=== PATIENT | female | born 1970 | race Caucasian/White ===

== ENCOUNTER 2025-07-27 12:50 | Emergency (ER) | payer OTHER, SELFPAY ==
[2025-07-27 12:54] VITALS: BP 192/114; PULSE 78; RESP 18; TEMP 36.7; O2SAT 97
--- NOTE | 2025-07-27 13:33 | CRLHL7_ITS ---
For Patients: As a result of the Cures Act, medical imaging exams and procedure reports are released immediately into your electronic medical record. You may view this report before your referring provider. If you have questions, please contact your health care provider. Indication: Fall Technique: Two views left tibia fibula Comparison: None Findings/Impression: Bones: Alignment is normal. No fractures or bone lesions. Joint spaces: Unremarkable. Soft tissues: Anterior soft tissue swelling. Dictated by Dipesh Richard MD @ 07/27/2025 2:32:49 PM (Electronically Signed)
--- NOTE | 2025-07-27 13:33 | CRLHL7_ITS ---
For Patients: As a result of the Cures Act, medical imaging exams and procedure reports are released immediately into your electronic medical record. You may view this report before your referring provider. If you have questions, please contact your health care provider. Indication: Fall, swelling and pain. Technique: Three views right knee Comparison: None Findings/Impression: Bones: Alignment is normal. No fractures or bone lesions. Joint spaces: Unremarkable. Soft tissues: Unremarkable. Dictated by Dipesh Richard MD @ 07/27/2025 2:33:37 PM (Electronically Signed)
--- NOTE | 2025-07-27 13:33 | CRLHL7_ITS ---
For Patients: As a result of the Century Cures Act, medical imaging exams and procedure reports are released immediately into your electronic medical record. You may view this report before your referring provider. If you have questions, please contact your health care provider. INDICATION: Leg pain and swelling. TECHNIQUE: Ultrasound venous duplex lower left extremity. Compression venous exam was performed using thomas-scale, color Doppler, and spectral Doppler analysis. COMPARISON: None. FINDINGS: Deep veins: Sonographic imaging demonstrates the left common femoral, deep femoral, superficial femoral, popliteal, posterior tibial and the contralateral right common femoral veins to be fully compressible with normal color Doppler blood flow. Superficial veins: Greater saphenous vein is fully compressible. No popliteal cyst. IMPRESSION: Normal left lower extremity venous ultrasound, no sign of deep venous thrombosis. Dictated by Michael Arauz MD @ 07/27/2025 3:01:11 PM (Electronically Signed)
--- NOTE | 2025-07-27 13:33 | CRLHL7_ITS ---
For Patients: As a result of the Century Cures Act, medical imaging exams and procedure reports are released immediately into your electronic medical record. You may view this report before your referring provider. If you have questions, please contact your health care provider. Indication: Fall Technique: Three views right ankle Comparison: Right ankle 07/14/2021 Findings/Impression: Bones: No evidence of acute fracture. Old anterior talus avulsion fracture redemonstrated. Joint spaces: Unremarkable. Soft tissues: Unremarkable. Dictated by Dipesh Richard MD @ 07/27/2025 2:31:22 PM (Electronically Signed)
--- NOTE | 2025-07-27 13:36 | ED.GENADULT ---
[facility] - General Adult General Date Seen: 07/27/25 Chief complaint: Lower Extremity Swelling Stated complaint: Fall yesterday, L leg injury Time Seen by Provider: 07/27/25 13:10 Source: patient Mode of arrival: ambulatory Limitations: no limitations History of Present Illness HPI narrative: Patient is a 54-year-old female presenting to emergency department for left knee pain. She states at work yesterday she tripped and fell on her left side. She tripped over some paint cans. Has been having increased pain since then and has been having difficulty walking. Started noticing bruising on her left lateral knee that has since been getting worse and has had normal be swollen left knee and left lower extremity. She has pain throughout the leg but worse around the knee. She has been able to walk but is unable to bend her knee at all due to pain. It is stuck in extension. She also has some mild right ankle pain. Denies any other injuries. States she did not hit her head. Denies any numbness. Initially has some left lateral rib pain that has since resolved. Related Data Home Medications ?Medication ?Instructions ?Recorded ?Confirmed lamotrigine 100 mg tablet 200 mg PO BID 07/27/25 07/27/25 Allergies Allergy/AdvReac Type Severity Reaction Status Date / Time Iodinated Contrast Media Allergy Severe Anaphylaxis Verified 07/27/25 13:03 Penicillins Allergy Severe Verified 07/27/25 13:03 Review of Systems Narrative: Pertinent systems reviewed and were negative unless stated in HPI PFSH PFS Social History Smoking Status: Never smoker How often do you have a drink containing alcohol: never AUDIT-C Alcohol total score: 0 Non-prescribed substance use: denies use Exam Narrative: Exam Narrative: Const: Well-nourished, Well-developed, in mild distress Eyes: PERRL, no conjunctival injection, and symmetrical lids HENT: Atraumatic external nose and ears. Moist mucous membranes. MSK: Obvious swelling noted to the left knee and left lower leg. Bruising noted to the lateral aspect of the left knee moving down the leg. No tenderness noted to left thigh or hip. No tenderness noted to rest of her extremities other than the anterior aspect of her right ankle. Unable to bend the left knee secondary to pain. Skin: Warm, Dry. No rashes or lesions. Neuro: Normal Muscle tone, No focal neurological deficits. Psych: Awake, Alert, & Oriented x3. Appropriate mood and affect. Const: Vital Signs, click to edit/add: Vital Signs - 24 hr 07/27/25 12:54 Temperature 98.1 F Pulse Rate [Right Pulse Oximeter] 78 Respiratory Rate 18 Blood Pressure [Ri ght Upper Arm] 192/114 H Pulse Oximetry 97 Oxygen Delivery Me thod Room Air Course Vital Signs Vital signs: Initial Vital Signs Temperature 98.1 F 07/27/25 12:54 Temperature Source Temporal Artery Scan 07/27/25 12:54 Pulse Rate 78 07/27/25 12:54 Pulse Rhythm Regular 07/27/25 12:54 Pulse Strength 3+ Normal 07/27/25 12:54 Respiratory Rate 18 07/27/25 12:54 Blood Pressure 192/114 H 07/27/25 12:54 Blood Pressure Mean 140 H 07/27/25 12:54 Blood Pressure Position Sitting 07/27/25 12:54 Pulse Oximetry 97 07/27/25 12:54 Oxygen Delivery Method Room Air 07/27/25 12:54 Vital Signs Temperature 98.1 F 07/27/25 12:54 Pulse Rate 78 07/27/25 12:54 Respiratory Rate 18 07/27/25 12:54 Blood Pressure 192/114 H 07/27/25 12:54 Pulse Oximetry 97 07/27/25 12:54 Oxygen Delivery Method Room Air 07/27/25 12:54 Temperature 98.1 F 07/27/25 12:54 Pulse Rate 78 07/27/25 12:54 Respiratory Rate 18 07/27/25 12:54 Blood Pressure 192/114 H 07/27/25 12:54 Pulse Oximetry 97 07/27/25 12:54 Oxygen Delivery Method Room Air 07/27/25 12:54 Medical Decision Making MDM Narrative Medical decision making narrative: Patient is a 54-year-old female presenting to the emergency department after a fall. She has a notably swollen left knee and lower extremity with quite a bit of bruising noted. Tenderness throughout the knee he noted along with tenderness throat the left lower leg. No tenderness noted to the thigh or hip. She also some mild pain to the right ankle. She is no longer having pain to the left ribs so will hold off on imaging nose. Will x-ray the left knee, left tibia/fibula, right ankle. With all the swelling and the fact that she has not moved the leg much over the past 20 hours will do an ultrasound to make sure she is not developing any blood clots. Images interpreted by myself and the radiologist showed no acute concerning abnormalities. No signs of fractures. No signs of blood clots. She is safe for discharge. I informed her she should follow-up with orthopedics. She is agreeable to this plan. She states she has crutches at home. Imaging Data Venous US: Attestation: I have reviewed the pertinent imaging results. Radiologist's impression: Normal left lower extremity venous ultrasound, no sign of deep venous thrombosis. Dictated by Michael Arauz MD @ 07/27/2025 3:01:11 PM Left knee x-ray: Attestation: I have reviewed the pertinent imaging results. Radiologist's impression: Bones: Alignment is normal. No fractures or bone lesions. Joint spaces: Unremarkable. Soft tissues: Unremarkable. Dictated by Dipesh Richard MD @ 07/27/2025 2:33:37 PM Left tibial/fibular x-ray: Attestation: I have reviewed the pertinent imaging results. Radiologist's impression: Bones: Alignment is normal. No fractures or bone lesions. Joint spaces: Unremarkable. Soft tissues: Anterior soft tissue swelling. Dictated by Dipesh Richard MD @ 07/27/2025 2:32:49 PM Right ankle x-ray: Attestation: I have reviewed the pertinent imaging results. Radiologist's impression: Bones: No evidence of acute fracture. Old anterior talus avulsion fracture redemonstrated. Joint spaces: Unremarkable. Soft tissues: Unremarkable. Dictated by Dipesh Richard MD @ 07/27/2025 2:31:22 PM Discharge Plan Discharge Clinical Impression: Acute pain of left knee Patient Disposition: Home, Self-Care Condition: Stable Instructions: Knee Pain (ED) Additional Instructions: There is no signs of fractures at this time but does not mean there is no underlying soft tissue injuries. Follow-up with [facility]. Call them at . I am unsure how long this injury will take to heal. Prescriptions: No Action lamotrigine 100 mg tablet 200 mg PO BID Follow Up/Referrals: Provider,Not a Local [Primary Care Provider, Family Practice] Stand Alone Forms: Work/School Release, MyHealth Info Instructions
--- OUTSIDE RECORDS SUMMARY | 2025-07-27 15:17 | XMS_ITS | Clinical Summary ---
Author Organization [facility] Address [address] [place] [id number] Care Team Providers Care Growth Hacker Name Role Phone Maty Cuevas NP Unavailable Lacho Arauz MD Unavailable [phone] Afshan Fischer Primary Care Provide r Allergies Active Allergy Reactions Criticality Noted Date Comments Aspirin 08/12/2006 Lisinopril Cough 11/15/2017 Unlisted Allergen (Include D etail In Comments) 08/12/2006 CT SCAN DYE Penicillins Rash 08/12/2006 Medications FOLIC ACID 1 MG TAB take 1 tablet (1 mg) by oral route once daily 0 9 Active levonorgestrel intrauterine device (MIRENA) 20 mcg/24 hr IUD Inserted 09/22/09 0 01 0 Active albuterol HFA (PROAIR HFA) 90 mcg/actuation inhalerIndicatio ns:Wheezing Inhale 2 Puffs by mouth every 4 hours if needed. 1 Inhaler 1 7 Active cyclobenzaprine (FLEXERIL) 10 mg tabletIndication s:Strain of lumbar region, initial encounter Take 1 tablet by mouth 2 times daily if needed for Muscle Spasm. Work comp 40 tablet 1 7 Active Gwkyg-2-WTY-EPA- Fish Oil 1,000 mg (120 mg-180 mg) cap Take 1 capsule by mouth once daily. 0 8 Active medication order composer Vitamin B super complex, calcium, glucosamine chondroitin, Women's multivitamin 0 8 Active carBAMazepine (TEGRETOL) 200 mg tabletIndication s:Seizure disorder (HC) Take 1 tablet by mouth 3 times daily. 270 tablet 8 Active pantoprazole (PROTONIX) 40 mg delayed-release tabletIndication s:Chronic GERD Take 1 tablet by mouth once daily. 90 tablet 3 8 Active chlorthalidone (HYGROTON) 25 mg tabletIndication s:Essential hypertension Take 1 tablet by mouth once daily. 90 tablet 3 8 Active durable medical equipment (DME)Indications :DDD (degenerative disc disease), lumbar Foam roller 1 Each 9 Active durable medical equipment (DME)Indications :DDD (degenerative disc disease), lumbar Exercise Ball 1 Each 9 Active amLODIPine (NORVASC) 5 mg tabletIndication s:HTN (hypertension) TAKE 1 TABLET BY MOUTH ONCE DAILY. 90 tablet 2 9 Active lamoTRIgine (LAMICTAL) 100 mg tablet Take 100 mg by mouth 2 times daily. 0 Active Hospital, Clinic, or Other Facility Administered Medication Ordered Dose Route Frequency Start Date End Date Status levonorgestrel intrauterine device 1 Device (MIRENA)Indications:Encounter for removal and reinsertion of intrauterine contraceptive device 1 Device IU Q 5 YEARS 08/19/2015 Active Active Problems Problem Noted Date Diagnosed Date Essential hypertension 08/22/2018 DDD (degenerative disc disease), lumbar 08/14/20 18 Lower back injury 08/14/2018 Chronic GERD 08/04/2018 Nonintractable epilepsy without status epileptic us 08/04/2018 Lower back injury 12/09/2017 ASCUS with positive high risk HPV cervical 03/09 Overview (01/07/2018): 03/2016 ASCUS, HPV + 04/2016 Colposcopy- suggestive of NABIL I 12/2017 NIL, HPV + Plan: colposcopy Rectal bleeding 03/07/2016 Overview (03/07/2016): Colonoscopy 02/2016 internal hemorrhoids repeat in 10 years Immunizations Immunization Administration Dates Next Due AMB Influenza, IIV3 (Age >=3 years)(Flu Clinic Only) 07/22/2008 Influenza A (H1N1), Inactiva rick (Age >=3 Years) 09/08/2009 Influenza, IIV3 (Age >=3 years) 09/29/2010,06/15,08/22/2007 Tdap 04/06/2016,01/07/2006 Family History Medical History Relation Name Comments Diabetes Father Hyperlipidemia Father hyperlipidemi a Hypertension Father Diabetes Mother Hyperlipidemia Mother hyperlipidemi a Hypertension Mother Cancer-breast Paternal Grandmother Relation Name Status Comments Father Mother Alive Paternal Grandmother Social History Tobacco Use Types Packs/Day Years Used Date Smoking Tobacco: Never Smokeless Tobacco: Never Tobacco Cessation:Counseling Given: Yes Alcohol Use Standard Drinks/Week Comments Yes 0 (1 standard drink = 0.6 oz pur e alcohol) rare PHQ-2 Answer Date Recorded PHQ-2 Score 2 11/09/2018 Interpersonal Safety Answer Date Record ed Are you being hit, kicked, p ushed or yelled at (see row info)? No 10/23/2023 Interpersonal Safety Abuse 12 - 18 Not on file 10/23/2023 Interpersonal Safety Ambulatory Vulnerability No t on file 10/23/2023 Comments No Sex and Gender Information Value Date Recorded Sex Assigned at Not on file Legal Sex Female 5:23 AM AGRICULTURAL CHEMIST Gender Identity Not on file Sexual Orientation Not on file Occupation Industry Job Start Date Job End Date Not on file Not on file Not on file Not on file Obstetrics History Para Term AB IAB SAB Ectopic Multiple Livin g Live Births 1 1 1 Date Outcome GA Total Labor Labor/2nd/3rd Weight Sex Type Anes PTL Danna A1 A5 Name Clin Para Comments Fritz Last Filed Vital Signs Vital Sign Reading Time Taken Comments Blood Pressure 182/108 10/23/2023 11:34 AM AGRICULTURAL CHEMIST Pulse 80 10/23/2023 11:34 AM AGRICULTURAL CHEMIST Temperature 36.7 C (98.1 F) 10/23/2023 11:34 AM AGRICULTURAL CHEMIST Respiratory Rate 18 10/23/2023 11:34 AM AGRICULTURAL CHEMIST Oxygen Saturation 96% 10/23/2023 11:34 AM AGRICULTURAL CHEMIST Inhaled Oxygen Concentration - - Weight 93.4 kg (206 lb) 10/23/2023 11:34 AM AGRICULTURAL CHEMIST Height 170.2 cm (5' 7) 10/09/2023 11:33 AM AGRICULTURAL CHEMIST Body Mass Index 32.26 10/09/2023 11:33 AM AGRICULTURAL CHEMIST Plan of Treatment Health Maintenance Due Date Last Done Comments Hepatitis B series for 19+ ( 1 of 3 - 19+ 3-dose series) 1989 Mammogram for age 45-75 12/30/2018 12/31/19 18, 11/02/2014, 03/27/2013, Additional history exists Depression screening for age 12+ 08/04/2019 08/04/2018, 12/24/2017, 04/06/2016 BMI (ht and wt on same day) for age 18+ 09/05/2019 09/05/2018, 08/04/2018, 12/24/2017, Additional history exists Lipids for age 45-75 12/09/2019 12/08/2014, 03/07/2013, 05/19/2009, Additional history exists Pneumococcal series for age 50+ (1 of 1 - PCV) 2020 Zoster (shingles) series for age 50+ (1 of 2) 2020 Pap test for age 21-65 12/24/2020 8, 12/24/2017, 04/06/2016, Additional history exists Influenza Vaccine (#1) 2025 1, 06/15/2009, 07/22/2008, Additional history exists Colonoscopy through age 75 03/07/2026 03/07/2016, Tetanus booster 04/06/2026 04/06/2016, 01/07/2006 RSV vaccine for adults or (1 - 1-dose 75+ series) 2045 Hepatitis C screening for ag e 18-79 Completed 01/10/2010 HIV for age 15-65 Completed 06/12/2010, 01/06/2010 Procedures Procedure Name Priority Date/Time Associated Diagnosis Comments XR MAMMO BILAT SCREENING Routine 12/30/2017 3:34 PM CDT Visit for screening mammogram 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 PAP DIAGNOSTIC IMAGED Routine 12/24/2017 3:00 PM CDT ASCUS with positive high risk HPV cervical Dysplasia of cervix, low grade (NABIL 1) SCAN-COLONOSCOPY 03/05/2016 12:0 0 AM CDT LIPID PANEL Routine 12/08/2014 7:55 AM CDT Routine general medical examination at a health care facility ANTI HIV 1/2 Routine 06/12/2010 8:16 PM CDT Screen for STD (sexually transmitted disease) ANTI HCV Routine 01/10/2010 9:06 AM CDT Screen for STD (sexually transmitted disease) from Last 3 Months or Most Recently Relevant to Health Maintenance Results * XR MAMMO BILAT SCREENING (12/30/2017 3:34 PM CDT) Anatomical Region Laterality Modality BREASTS, Breast Left, Breast Right Bilateral Mammography Impressions 12/31/2017 12:16 PM CDT There is no radiographic evidence for malignancy. Recommend annual mammograms. A lay language report of this examination will be provided to the patient. MAMMOGRAM ASSESSMENT: ACR 2 Benign Narrative 12/31/2017 12:16 PM CDT XR MAMMO BILAT SCREENING [[id number]] CLINICAL HISTORY: This is an asymptomatic 47 y.o. patient. INDICATION FOR EXAM: Mammogram Screening. TECHNIQUE: CC & MLO views were obtained. This digital study was evaluated with the assistance of Computer-Aided Detection. COMPARISON FILMS: Yes 11/02/14 [facility] FINDINGS: Mammographically, the breast tissue has scattered fibroglandular densities. No suspicious masses or microcalcifications. Benign appearing calcifications within both breasts and Intramammary lymph node within left breast. 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 PAP DIAGNOSTIC IMAGED (12/24/2017 3:00 PM CDT) Case Report Gynecologic Cytology Report Case: [id number] Authorizing Provider: Maty Cuevas Collected: 12/24/2017 Leonid Guallpa NP Ordering Location: [facility] Received: 12/24/2017 1526 Clinic First Screen: Dipesh Acuña Rescreen: Charles Olson Specimen: WATER SKI ASSEMBLER ThinPrep Vial Diagnostic, Cervical 01/03/2018 3:25 PM CDT [facility]AL [facility] INTERPRETATION/ RESULT NEGATIVE FOR INTRAEPITHELIAL LESION OR MALIGNANCY (NIL) (none) 01/03/2018 3:25 PM CDT [facility] at 1525 CDT SPECIMEN ADEQUACY Satisfactory for evaluation Endocervical component present 01/03/2018 3:25 PM CDT [facility] HPV REQUEST HPV and PAP 01/03/2018 3:25 PM CDT [facility] Date of LMP hormonally suppressed 01/03/2018 3:25 PM CDT [facility] Last Pap Date 04/06/16 01/03/2018 3:25 PM CDT [facility] Last Pap Result ASCUS 8 3:25 PM CDT [facility] Abnormal Pap or Nelson Bx in last 5 years Yes 01/03/2018 3:25 PM CDT [facility] Menstrual Status Hormonally Suppressed 01/03/2018 3:25 PM CDT [facility] Nelson Bx Done Today No 01/03/2018 3:25 PM CDT [facility] Additional Information None Given 01/03/2018 3:25 PM CDT [facility] Automated Review Successful 01/03/2018 3:25 PM CDT [facility] Comment:Specimen processed s uccessfully by automated detective sergeant device, ThinPrep Imaging System, [employer] ANCILLARY TESTING WATER SKI ASSEMBLER HPV Ordered, Please see separate report 01/03/2018 3:25 PM CDT [facility] Note The pap test is a screening technique, not a diagnostic procedure. It is used primarily to screen for squamous cancers and precursor lesions. Published studies have shown that it is subject to both false negative and false positive results. The pap test should not be used as the sole means to diagnose or exclude pre-malignant and malignant lesions. Interpreted at [facility] ([facility], [facility], [facility], [facility], [facility], [facility], [facility]) 01/03/2018 3:25 PM CDT [facility] Other (Cervical) Non-Blood / Unknown 12/24/2017 3:00 PM CDT 12/24/2017 3:26 PM CDT us Maty Bañuelos NP PATHOLOGY/CYTOLOG Y Final Result [facility] [address] [place] [address], [place] * SCAN-COLONOSCOPY (03/05/2016 12:00 AM CDT) us Scanner OTHER Final Result * LIPID PANEL (12/08/2014 7:55 AM CDT) CHOLESTEROL,TOTAL 180 100 - 199 mg/dL 12/08/2014 9:47 AM CDT [facility] TRIGLYCERIDES 83 <150 mg/dL 12/08/2014 9:47 AM CDT [facility] HDL CHOLESTEROL 56 >40 mg/dL 5 9:47 AM CDT [facility] NON-HDL CHOLESTEROL 124 <145 mg/dl 12/08/2014 9:47 AM CDT [facility] CHOL/HDL RATIO 3.21 <4.50 12/08/2014 9:47 AM CDT [facility] LDL CHOLESTEROL 107 <=130 mg/dL 12/08/2014 9:47 AM CDT [facility] PATIENT STATUS FASTING 12/08/2014 9:47 AM CDT [facility] Blood specimen (specimen) BLOOD SPECIMEN / Unknown Venipuncture / Unknown 12/08/2014 7:55 AM CDT 12/08/2014 7:55 AM CDT us Marquita Ortiz CHEMISTRY Final Result [facility] [address] [place] [address], [place] [phone] * ANTI HIV 1/2 (06/12/2010 8:16 PM CDT) ANTI HIV 1/2 Non-reacti ve [facility] Blood specimen (specimen) BLOOD SPECIMEN / Unknown 06/12/2010 8:16 PM CDT 06/12/2010 7:58 PM CDT us Emile oMnte DO SEND OUTS Final Res ult [facility] [place]IP [address] [address] * ANTI HCV (01/10/2010 9:06 AM CDT) ANTI HCV Non-reacti ve [facility] Blood specimen (specimen) BLOOD SPECIMEN / Unknown 01/10/2010 9:06 AM CDT 01/10/2010 8:59 AM CDT us Marquita Ortiz SEND OUTS Final Result Performing Organization Address City/[facility]/ZIP Co de Phone Number [facility] INTERNAL ZIP [address] [place] [phone] from Last 3 Months or Most Recently Relevant to Health Maintenance Insurance [facility] INDIVIDUAL AND FAMILY PLANS [facility] CLAIM SERVICES [facility] [employer] [facility] CLAIM SERVICES [facility] INDIVIDUAL AND FAMILY PLANS [facility] Care Teams Growth Hacker Relationship Specialty Start Date End Date Afshan Fischer PA [address] [place] [address] PCP - General Physician Therapy Site Coordinator 01/15/19 Maty Cuevas NP Nurse Practitioner - Women's Health 12/24/17 [place] [address] Family Practice 12/24/17
== END 2025-07-27 15:51 | disposition home or self-care (01) ==
PROVIDERS: Emergency Provider Student in an Organized Health Care Education/Training Program
DX: M25.562 Pain in left knee (principal); W18.09XA Striking against other object with subsequent fall, initial encounter
CPT/HCPCS: 73562; 73590; 73610; 93971; 99283; 99284